=== PATIENT | male | born 1960 | race Two or more races ===

== ENCOUNTER 2019-04-04 14:23 | Emergency (ER) | payer MEDICARE, OTHER ==
[~2019-04-04] VITALS: Ht 177.8 cm; Wt 88.5 kg
[2019-04-04] MEDS ORDERED: HYDROcodone/Acetamin 5/325 tab ONE (14:36)
--- NOTE | 2019-04-04 14:40 | NUR ---
ED Nurse Note:Pt walked in from home c/o right arm and posterior neck pain 10/10. Pt was painting and fell 5 feet from ladder. Pt reports hitting head but did not lose consciousness. Respirations even and unlabored on room air. Vitals stable as documented.
--- NOTE | 2019-04-04 14:43 | NUR ---
ED Nurse Note: Pt in radiology
[2019-04-04] MEDS ORDERED: HYDROcodone/Acetamin 5/325 tab ORAL ONE (14:45)
[2019-04-04 15:00] VITALS: BP 160/94
[2019-04-04] MEDS ORDERED: Morphine Sulfate 4mg/ml Inj (IV USE ONLY) ONE (15:31)
[2019-04-04] MEDS ORDERED: Morphine Sulfate 2mg/ml Inj(IV/IM USE ONLY) IM ONE (15:45)
[2019-04-04] MEDS ORDERED: Morphine Sulfate 4mg/ml Inj (IV USE ONLY) IVP ONE ×2 (15:45→17:15)
--- NOTE | 2019-04-04 15:55 | NUR ---
ED Nurse Note: Radiolgist reported C1 fx. Pt already placed in C-collar upon arrival. Pt moved to monitored bed right away. IV inserted and IV morphine administered. Pt has movement and feeling in all extremities. Pt to be transferred to higher level of care.
--- NOTE | 2019-04-04 15:57 | Diagnostic Imaging Report ---
Indication: Neck pain, status post trauma Technique: Spiral acquisitions obtained through the cervical spine. No IV contrast utilized. Multiplanar reconstructions were generated. Total dose length product 229 mGycm. CTDIvol(s) 8 mGy. Dose reduction achieved using automated exposure control. Comparison: none Findings: There is slight reversal of the normal cervical lordosis. Otherwise normal bony alignment. No prevertebral soft tissue swelling. Vertebral body heights are preserved. There is a multipartite fracture of C1. There is a fracture of the right anterior arch which is distracted by about 4 mm. There is a fracture of the left anterior arch which is slightly more medial than the right-sided fracture, is distracted by about 5 mm. There is a fracture of the right lamina which is minimally distracted by 1 to 2 mm. There is a fracture of the left lamina in nearly identical location as that on the right. This fracture is distracted by approximately 5 mm. 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 There is very slight posterior subluxation of the occipital condyles. There are degenerative changes of the left atlantooccipital joint. The C1-C2 alignment is largely preserved, although there is slight widening of the lateral joint spaces anteriorly bilaterally. The atlantodens interval is preserved; in fact slightly narrowed due to joint arthrosis, indicating intact transverse atlantal ligament. The fracture does not compromise the spinal canal or cord. There is no evidence of epidural hematoma. C2 is intact without evidence of fracture. The remainder of the cervical segments are intact, without evidence of fracture, subluxation, or dislocation. At C2-3, no significant disc bulge or protrusion, spinal stenosis, or neural foraminal stenosis. There is bilateral facet arthrosis. The disc space is preserved. At C3-4, there is no significant disc bulge or protrusion, but short pedicles result in mild narrowing of the spinal canal. There is moderate to severe narrowing of the left neural foramen due to facet arthrosis. The disc space is preserved At C4-5, there is moderate degenerative disc narrowing. Posterior osteophytes and short pedicles result in moderate narrowing of the spinal canal. There is severe narrowing of the right neural foramen, moderate narrowing of the left neural foramen. There is bilateral facet arthrosis. At C5-6, there is moderate spinal canal stenosis, predominantly due to short pedicles. There is mild right and severe left neural foraminal stenosis. There is mild bilateral facet arthrosis and mild degenerative disc narrowing. At C6-7, there is moderate to severe degenerative disc narrowing. Short pedicles and posterior osteophytes result in moderate spinal canal stenosis. There is moderate to severe right and severe left neural foraminal narrowing. There is bilateral facet arthrosis. At C7-T1, no significant disc bulge or protrusion, spinal stenosis, or neural foraminal narrowing. The included extraspinal soft tissues are unremarkable. Impression: Positive for 4 part burst fracture of C1; this is a typical so-called [place] fracture. Normal atlantodens interval suggests intact transverse atlantal ligament. No evidence of spinal canal compromise No other acute fractures are demonstrated Multilevel degenerative changes, as detailed on a level by level basis above Critical value findings phoned to Dr. Ramesh in the emergency room at the time of interpretation The CT scanner at [facility] is accredited by the [employer] and the scans are performed using protocols designed to limit radiation exposure to as low as reasonably achievable to attain images of sufficient resolution adequate for diagnostic evaluation.
[2019-04-04 16:01] VITALS: BP 167/99
[2019-04-04 16:03] LABS: INR 0.9 (0.9-1.1)
--- NOTE | 2019-04-04 16:07 | Diagnostic Imaging Report ---
Indications: Pain, trauma, fell off ladder, hit head Technique: Spiral acquisitions obtained through the brain. Angled axial and coronal 5 x 5 mm slices were reconstructed. Total dose length product 1019 mGycm. CTDI vol(s) 53 mGy. Dose reduction achieved using automated exposure control Comparison: None. Findings: No acute intracranial hemorrhage or edema. No mass effect nor midline shift. Normal segal-white differentiation. Normal size ventricles and extra axial CSF spaces. Intact calvarium. Visualized orbits are unremarkable. The sinuses are clear. There is a small scalp hematoma in the left occipital region. Also noted is a burst fracture of the C1 vertebral body. This is described in detail on separate cervical spine CT report Impression: Negative for acute intracranial bleed or mass effect Positive for C1 burst fracture-see separate cervical spine CT report for details Small left occipital extracranial scalp hematoma The CT scanner at [facility] is accredited by the [employer] and the scans are performed using protocols designed to limit radiation exposure to as low as reasonably achievable to attain images of sufficient resolution adequate for diagnostic evaluation.
[2019-04-04] MEDS ORDERED: Ketorolac 30mg Inj IV ONE (16:15)
[2019-04-04 16:16] LABS: ALANINE AMINOTRANSFERASE 22 U/L (12-78); ALBUMIN 4.2 G/DL (3.4-5.0); ALBUMIN/GLOBULIN RATIO 1.1 (1.0-2.7); ALKALINE PHOSPHATASE 89 U/L (46-116); ANION GAP 11 mmol/L (5-15); ASPARTATE AMINO TRANSFERASE 20 U/L (15-37); BILIRUBIN,TOTAL 0.3 MG/DL (0.2-1.0); BLOOD UREA NITROGEN 20 mg/dL (7-18); CALCIUM 9.5 MG/DL (8.5-10.1); CARBON DIOXIDE 24 MMOL/L (21-32); CHLORIDE 104 MMOL/L (98-107); CREATININE 1.1 MG/DL (0.55-1.30); POTASSIUM 4.4 MMOL/L (3.5-5.1); SODIUM 139 MMOL/L (136-145)
[2019-04-04 16:20] LABS: BASOPHILS % (AUTO) 1.4 % (0.0-2.0); EOSINOPHILS % (AUTO) 0.9 % (0.0-3.0); HEMATOCRIT 44.1 % (42.0-52.0); HEMOGLOBIN 14.7 G/DL (14.2-18.0); LYMPHOCYTES % (AUTO) 10.2 % (20.0-45.0); MEAN CORPUSCULAR VOLUME 91 FL (80-99); NEUTROPHILS % (AUTO) 81.6 % (45.0-75.0); PLATELET COUNT 195 K/UL (150-450); RED BLOOD COUNT 4.86 M/UL (4.70-6.10); RED CELL DISTRIBUTION WIDTH 13.9 % (11.6-14.8); WHITE BLOOD COUNT 13.5 K/UL (4.8-10.8)
--- NOTE | 2019-04-04 16:54 | Diagnostic Imaging Report ---
Indication: Chest pain Technique: One view of the chest Comparison: none Findings: Lungs and pleural spaces are clear. The heart size is normal. Impression: No acute process
--- NOTE | 2019-04-04 17:05 | Diagnostic Imaging Report ---
Clinical Indication:Right wrist pain Technique: 3 views of the right wrist Comparison: None Findings: There is a severely comminuted severely impacted posteriorly angulated and displaced fracture of the distal radius. This involves the articular surface. No definite associated ulnar fracture. There is also a transverse fracture of the scaphoid waist. Impression: Positive for distal radial fracture Positive for nondisplaced scaphoid waist fracture
--- NOTE | 2019-04-04 17:07 | NUR ---
ED Nurse Note: Report given to Lou @ [facility].
--- NOTE | 2019-04-04 17:07 | Diagnostic Imaging Report ---
Indication: Right hand pain, status post fall Technique: 3 views right hand Comparison: none Findings: Possible tiny curvilinear metallic radiopaque foreign body is seen projected in the soft tissues of the fifth digit on the AP view. There is a comminuted distal radial fracture, described on separate wrist radiograph. There is also a scaphoid waist fracture, nondisplaced, also described on that study. No definite hand fracture demonstrated. Impression: Positive for distal radial and scaphoid waist fractures, also described on prior wrist radiograph Possible small foreign body within the fifth digit soft tissue
--- NOTE | 2019-04-04 17:36 | Emergency Room Report ---
History of Present Illness General Chief Complaint: Multiple Trauma/Fall Source: Patient Present Illness HPI 58-year-old male presents ED for evaluation of fall injury. Brought in by friend. Had a mechanical fall today when he fell off a ladder at work. approximately 5 feet high. Hit his head. LOC. Neck pain and headache and right wrist pain. Throbbing, 10 out of 10, nonradiating. Notes nausea and vomiting nausea and vomiting. Denies photophobia. Denies chest pain. Denies any other injuries. No other aggravating relieving factors. Denies any other associated symptoms Allergies: Coded Allergies: No Known Allergies (Unverified , 04/04/19) Patient History Past Medical History: none Past Surgical History: none Pertinent Family History: none Social History: Denies: smoking, alcohol use, drug use Immunizations: UTD Reviewed Nursing Documentation: PMH: Agreed; PSxH: Agreed Nursing Documentation-PMH Past Medical History: Deferred Review of Systems All Other Systems: negative except mentioned in HPI Physical Exam Vital Signs Date Time Temp Pulse Resp B/P (MAP) Pulse Ox O2 Delivery O2 Flow Rate FiO2 04/04/19 15:00 97.0 60 16 160/94 99 Room Air Sp02 EP Interpretation: reviewed, normal General Appearance: no apparent distress, alert, GCS 15, non-toxic, mild distress Head: normocephalic, atraumatic Eyes: bilateral eye normal inspection, bilateral eye PERRL ENT: hearing grossly normal, normal pharynx, no angioedema, normal voice Neck: supple/symm/no masses, tender lateral, tender midline Respiratory: chest non-tender, lungs clear, normal breath sounds, speaking full sentences Cardiovascular #1: regular rate, rhythm, no edema Cardiovascular #2: 2+ carotid (R), 2+ carotid (L), 2+ radial (R), 2+ radial (L) , 2+ dorsalis pedis (R), 2+ dorsalis pedis (L) Gastrointestinal: normal bowel sounds, non tender, soft, non-distended, no guarding, no rebound Rectal: deferred Genitourinary: normal inspection, no CVA tenderness Musculoskeletal: back normal, normal range of motion, gait/station normal, tender - R wrist Neurologic: alert, motor strength/tone normal, enterprise resource analyst III-XII nml as tested, oriented x3, sensory intact, cerebellar normal, responsive, speech normal Psychiatric: judgement/insight normal, memory normal, mood/affect normal, no suicidal/homicidal ideation Reflexes: 3+ bicep (R), 3+ bicep (L), 3+ tricep (R), 3+ tricep (L), 3+ knee (R) , 3+ knee (L) Skin: no rash Lymphatic: no adenopathy Procedures Critical Care Time Critical Care Time i. I feel this is a highly complex case requiring extensive working including EKG/Rhythm strip, Xray/CT/US, Blood/urine lab work, repeat exams while in ED, and administration of strong opiates/narcotics for pain control, admission to hospital or close patient follow up. Total time: 90 min bedside evaluation and treatment excludes procedures (EKG). Reason for critical care: C1 fracture, right wrist fracture, fall Possible complications: hypotension, hypertension, [place], shock, arrhythmias, metabolic acidosis, end organ damage, respiratory failure. Interventions: CT head, C-spine, hard collar, x-rays right wrist and right hand. Reduction of wrist. Splinting. Discussion with neurosurgery at [facility]. discussion with trauma team at [facility] Course: Patient presenting with head injury and neck pain and right wrist pain status post fall from ladder. X-rays show wrist fracture. C1 burst fracture. No head injury. Pain improved. No neurological deficits. Placed in hard collar. Right wrist placed in fingertrap hanging from IV pole to create alignment. Wrist clinically reduced. Placed in sugar tong splint with sling. Discussed with trauma team and spine team at [facility] and accepted patient Consultations: nursing staff, EMS, family Performed by: Dr Ramesh Tolerated well condition = critical j. because of unstable vital signs this patient had a condition that could potentially threaten life or limb. I feel this is a critical patient who required my full attention while patient was considered critical. Total Critical Care Time excluding procedures was greater than 90 minutes Joint Reduction Joint Reduction : Consent: Verbal Joint Reduction Site: wrist (R) Procedural Sedation: No Reduction Attempts: One Pre-Procedure NV Exam: Yes Post-Procedure NV Exam: Yes Post Joint Reduction Film: joint reduced Patient Tolerated: Well Complications: None Medical Decision Making Diagnostic Impression: Primary Impression: Multiple injuries due to trauma Additional Impressions: C1 cervical fracture Qualified Codes: S12.02XA - Unstable burst fracture of first cervical vertebra , initial encounter for closed fracture Wrist fracture Qualified Codes: S62.101A - Fracture of unspecified carpal bone, right wrist, initial encounter for closed fracture ER Course 58-year-old male presents with head pain, neck pain, wrist pain status post fall differential fracture, dislocation, brain bleed History and physical patient placed in soft collar. I ordered pain meds, CT head and C-spine, x-rays of right hand and wrist CT C-spine shows C1 burst fracture. CT head no acute process Right wrist x-ray shows distal radius and scaphoid fractures Patient has no focal neurological deficits. Placed in hard collar. Wrist placed in hematoma block. Placed in finger traps and aligned slowly. Placed in sugar tong splint. Discussed case with trauma team and spine team at [facility] and accepted patient for transfer Diagnosismultiple injuries due to trauma, C1 cervical fracture, wrist fracture transferred to [facility] in critical condition Labs Test 04/04/19 15:40 White Blood Count 13.5 K/UL (4.8-10.8) Red Blood Count 4.86 M/UL (4.70-6.10) Hemoglobin 14.7 G/DL (14.2-18.0) Hematocrit 44.1 % (42.0-52.0) Mean Corpuscular Volume 91 FL (80-99) Mean Corpuscular Hemoglobin 30.2 PG (27.0-31.0) Mean Corpuscular Hemoglobin Concent 33.3 G/DL (32.0-36.0) Red Cell Distribution Width 13.9 % (11.6-14.8) Platelet Count 195 K/UL (150-450) Mean Platelet Volume 8.1 FL (6.5-10.1) Neutrophils (%) (Auto) 81.6 % (45.0-75.0) Lymphocytes (%) (Auto) 10.2 % (20.0-45.0) Monocytes (%) (Auto) 6.0 % (1.0-10.0) Eosinophils (%) (Auto) 0.9 % (0.0-3.0) Basophils (%) (Auto) 1.4 % (0.0-2.0) Prothrombin Time 9.9 SEC (9.30-11.50) Prothromb Time International Ratio 0.9 (0.9-1.1) Activated Partial Thromboplast Time 24 SEC (23-33) Sodium Level 139 MMOL/L (136-145) Potassium Level 4.4 MMOL/L (3.5-5.1) Chloride Level 104 MMOL/L (98-107) Carbon Dioxide Level 24 MMOL/L (21-32) Anion Gap 11 mmol/L (5-15) Blood Urea Nitrogen 20 mg/dL (7-18) Creatinine 1.1 MG/DL (0.55-1.30) Estimat Glomerular Filtration Rate > 60 mL/min (>60) Glucose Level 150 MG/DL (74-106) Calcium Level 9.5 MG/DL (8.5-10.1) Total Bilirubin 0.3 MG/DL (0.2-1.0) Aspartate Amino Transf (AST/SGOT) 20 U/L (15-37) Alanine Aminotransferase (ALT/SGPT) 22 U/L (12-78) Alkaline Phosphatase 89 U/L (46-116) Total Protein 7.9 G/DL (6.4-8.2) Albumin 4.2 G/DL (3.4-5.0) Globulin 3.7 g/dL Albumin/Globulin Ratio 1.1 (1.0-2.7) Chest X-Ray Diagnostic Results Chest X-Ray Diagnostic Results : Chest X-Ray Ordered: Yes # of Views/Limited/Complete: 1 View Indication: Other - fall EP Interpretation: Yes Interpretation: no consolidation, no effusion, no pneumothorax, no acute cardiopulmonary disease Impression: No acute disease Electronically Signed by: Electronically signed by Chris Ramesh MD Other X-Ray Diagnostic Results Other X-Ray Diagnostic Results #1: X-Ray ordered: R wrist # of Views/Limited Vs Complete: 3 View Indication: Pain EP Interpretation: Yes Interpretation: no dislocation, other - fx Impression: Other - distal radius scaphoid fx Electronically Signed by: Electronically signed by Chris Ramesh MD Other X-Ray Diagnostic Results #2: X-Ray ordered: R hand # of Views/Limited Vs Complete: 3 View Indication: Pain EP Interpretation: Yes Interpretation: no dislocation, other - distal radius/scaphoid fx Impression: Other - radius/scaphoid fx Electronically Signed by: Electronically signed by Chris Ramesh MD CT/MRI/US Diagnostic Results CT/MRI/US Diagnostic Results #1: Imaging Test Ordered: CT head Impression Findings: No acute intracranial hemorrhage or edema. No mass effect nor midline shift. Normal segal-white differentiation. Normal size ventricles and extra axial CSF spaces. Intact calvarium. Visualized orbits are unremarkable. The sinuses are clear. There is a small scalp hematoma in the left occipital region. Also noted is a burst fracture of the C1 vertebral body. This is described in detail on separate cervical spine CT report Impression: Negative for acute intracranial bleed or mass effect Positive for C1 burst fracture-see separate cervical spine CT report for details Small left occipital extracranial scalp hematoma The CT scanner at [facility] is accredited by the [employer] and the scans are performed using protocols designed to limit radiation exposure to as low as reasonably achievable to attain images of sufficient resolution adequate for diagnostic evaluation. CT/MRI/US Diagnostic Results #2: Imaging Test Ordered: CT C spine Impression Findings: There is slight reversal of the normal cervical lordosis. Otherwise normal bony alignment. No prevertebral soft tissue swelling. Vertebral body heights are preserved. There is a multipartite fracture of C1. There is a fracture of the right anterior arch which is distracted by about 4 mm. There is a fracture of the left anterior arch which is slightly more medial than the right-sided fracture, is distracted by about 5 mm. There is a fracture of the right lamina which is minimally distracted by 1 to 2 mm. There is a fracture of the left lamina in nearly identical location as that on the right. This fracture is distracted by approximately 5 mm. There is also failure of fusion of the posterior midline, but this appears to be congenital/ developmental. There is very slight posterior subluxation of the occipital condyles. There are degenerative changes of the left atlantooccipital joint. The C1-C2 alignment is largely preserved, although there is slight widening of the lateral joint spaces anteriorly bilaterally. The atlantodens interval is preserved; in fact slightly narrowed due to joint arthrosis, indicating intact transverse atlantal ligament. The fracture does not compromise the spinal canal or cord. There is no evidence of epidural hematoma. C2 is intact without evidence of fracture. The remainder of the cervical segments are intact, without evidence of fracture, subluxation, or dislocation. At C2-3, no significant disc bulge or protrusion, spinal stenosis, or neural foraminal stenosis. There is bilateral facet arthrosis. The disc space is preserved. At C3-4, there is no significant disc bulge or protrusion, but short pedicles result in mild narrowing of the spinal canal. There is moderate to severe narrowing of the left neural foramen due to facet arthrosis. The disc space is preserved At C4-5, there is moderate degenerative disc narrowing. Posterior osteophytes and short pedicles result in moderate narrowing of the spinal canal. There is severe narrowing of the right neural foramen, moderate narrowing of the left neural foramen. There is bilateral facet arthrosis. At C5-6, there is moderate spinal canal stenosis, predominantly due to short pedicles. There is mild right and severe left neural foraminal stenosis. There is mild bilateral facet arthrosis and mild degenerative disc narrowing. At C6-7, there is moderate to severe degenerative disc narrowing. Short pedicles and posterior osteophytes result in moderate spinal canal stenosis. There is moderate to severe right and severe left neural foraminal narrowing. There is bilateral facet arthrosis. At C7-T1, no significant disc bulge or protrusion, spinal stenosis, or neural foraminal narrowing. The included extraspinal soft tissues are unremarkable. Impression: Positive for 4 part burst fracture of C1; this is a typical so- called [place] fracture. Normal atlantodens interval suggests intact transverse atlantal ligament. No evidence of spinal canal compromise No other acute fractures are demonstrated Multilevel degenerative changes, as detailed on a level by level basis above Critical value findings phoned to Dr. Ramesh in the emergency room at the time of interpretation The CT scanner at [facility] is accredited by the [employer] and the scans are performed using protocols designed to limit radiation exposure to as low as reasonably achievable to attain images of sufficient resolution adequate for diagnostic evaluation. Last Vital Signs Date Time Temp Pulse Resp B/P (MAP) Pulse Ox O2 Delivery O2 Flow Rate FiO2 04/04/19 16:01 62 16 167/99 99 Room Air 04/04/19 15:00 97.0 Status: improved Disposition: XFER SHT-TRM HOSP Condition: Critical Scripts Unable to Obtain Active Prescriptions or Reported Meds Referrals: NOT CHOSEN IPA/,REFERRING (PCP) Chris Ramesh MD Apr 04, 2019 17:36
--- NOTE | 2019-04-04 18:34 | NUR ---
ED Nurse Note: [facility] @ bedside
[2019-04-04 18:45] VITALS: BP 159/97
--- NOTE | 2019-04-04 18:45 | NUR ---
ED Nurse Note: Pt A+Ox4 in stable condition discharging with IV. Respirations even and unlabored on room air. Vitals stable as documented. Pt in C-collar. Pt discharged safely via gurney with ambulance personnel and RN en route to [facility].
== END 2019-04-04 18:45 | disposition short-term general hospital (02) ==
LOC: EMR 14:35
DX: S52.591A Other fractures of lower end of right radius, initial encounter for closed fracture (principal); S62.001A Unspecified fracture of navicular [scaphoid] bone of right wrist, initial encounter for closed fracture; S12.02XA Unstable burst fracture of first cervical vertebra, initial encounter for closed fracture; W11.XXXA Fall on and from ladder, initial encounter; Y93.9 Activity, unspecified; Y92.9 Unspecified place or not applicable
CPT/HCPCS: 25605; 36415; 70450; 71045; 72125; 73110; 73130; 80053; 85025; 85610; 85730; 86850; 86900; 86901; 93005; 96374; 96375; 96376; 99291; 99292; J1885; J2270